=== PATIENT | male | born 1995 | race Hispanic/Latino ===

== ENCOUNTER 2019-03-23 03:37 | Emergency (ER) | payer OTHER ==
[~2019-03-23] VITALS: Ht 180.3 cm; Wt 63.5 kg
[2019-03-23] MEDS ORDERED: SUBOXONE 2 MG-1 EAC2 SL (04:53)
== END 2019-03-23 05:09 | disposition home or self-care (01) ==
LOC: ED 03:37
DX: Z00.8 Encounter for other general examination (principal); F17.200 Nicotine dependence, unspecified, uncomplicated; Z88.0 Allergy status to penicillin
CPT/HCPCS: 99282